=== PATIENT | male | born 1945 | race Two or more races ===

== ENCOUNTER 2019-08-13 12:04 | Emergency (ER) | payer OTHER ==
[~2019-08-13] VITALS: Ht 170.2 cm; Wt 68.0 kg
[~2019-08-13 12:04] MED LIST: DICLOFENAC SODI50 MG PO; ORPH100T PO
== END 2019-08-13 14:51 | disposition home or self-care (01) ==
LOC: ER 12:04
DX: L20.89 Other atopic dermatitis (principal)

== ENCOUNTER 2020-01-06 10:35 | Emergency (ER) | payer OTHER ==
[~2020-01-06] VITALS: Ht 162.6 cm; Wt 70.8 kg
[2020-01-06] MEDS ORDERED: FORTAMET500 MG (11:39)
[2020-01-06] MEDS ORDERED: CRESTOR5 MG (11:40)
[2020-01-06] MEDS ORDERED: PROSCAR5 MG (11:40)
[2020-01-06] MEDS ORDERED: ASPIR 8181 MG PO (14:25)
== END 2020-01-06 14:30 | disposition home or self-care (01) ==
LOC: ER 10:35
DX: G45.8 Other transient cerebral ischemic attacks and related syndromes (principal)

== ENCOUNTER → 2020-01-12 | Outpatient (CLI) | payer OTHER ==
[~2020-01-12] MED LIST changes: +ASPIR 8181 MG PO; +CRESTOR5 MG; +FORTAMET500 MG; +PROSCAR5 MG
== END | disposition home or self-care (01) ==
LOC: MRI 08:15
DX: G45.8 Other transient cerebral ischemic attacks and related syndromes (principal)
CPT/HCPCS: 70553; A9575; 70552

== ENCOUNTER → 2022-11-04 | Emergency (ER) | payer OTHER ==
[~2022-11-04] VITALS: Ht 167.6 cm; Wt 61.2 kg
== END | disposition left against medical advice (07) ==
LOC: ER 13:35
DX: R26.89 Other abnormalities of gait and mobility (principal)